=== PATIENT | female | born 1960 | race Hispanic/Latino ===

== ENCOUNTER 2016-11-03 11:20 | Emergency (ER) | payer MEDICAID ==
[2016-11-03 11:26] VITALS: BP 136/78; PULSE 84; RESP 20; TEMP 98; O2SAT 95
--- NOTE | 2016-11-03 12:44 | ED PDOC ---
Upper Extremity Pain/Injury Time Seen by Provider: 11/03/16 11:42 Chief Complaint (Nursing): Upper Extremity Problem/Injury Chief Complaint (Provider): Upper Extremity Problem/Injury History Per: Patient History/Exam Limitations: no limitations Onset/Duration Of Symptoms: Days Current Symptoms Are (Timing): Still Present Quality: "Pain" Severity: Mild Additional Complaint(s): Patient is a 56 year old female who presents to ED for evaluation of right shoulder pain for 1.5 weeks. States she accidentally over extended it while attempting to lift a crate at work. States pain radiates to elbow and wrist with no blunt trauma. Patient also reports atraumatic right knee swelling. Admits to an injury 10 years ago resulting in cartridge surgery and now the knee arnoldo with walking up steps. Past Medical History Reviewed: Historical Data, Nursing Documentation, Vital Signs Vital Signs: Last Vital Signs Temp 98 F 11/03/16 11:25 Pulse 84 11/03/16 11:25 Resp 20 11/03/16 11:25 BP 136/78 11/03/16 11:25 Pulse Ox 95 11/03/16 11:25 - Medical History PMH: No Chronic Diseases - Surgical History Other surgeries: knee surgery - Family History Family History: States: No Known Family Hx - Home Medications Home Medications: Ambulatory Orders Medication Instructions Recorded Meloxicam [Mobic] 7.5 mg PO DAILY PRN #30 tab 11/03/16 Tramadol HCl [Ultram] 50 mg PO BID PRN #30 tablet 11/03/16 - Allergies Allergies/Adverse Reactions: Allergies Allergy/AdvReac Type Severity Reaction Status Date / Time No Known Allergies Allergy Verified 11/03/16 12:21 Review of Systems ROS Statement: Except As Marked, All Systems Reviewed And Found Negative Constitutional: Negative for: Weakness Eyes: Negative for: Vision Change Cardiovascular: Negative for: Chest Pain, Palpitations Respiratory: Negative for: Shortness of Breath Musculoskeletal: Positive for: Arm Pain, Leg Pain. Negative for: Back Pain Neurological: Negative for: Weakness, Numbness Physical Exam - Reviewed Nursing Documentation Reviewed: Yes Vital Signs Reviewed: Yes - Physical Exam Appears: Positive for: Non-toxic, No Acute Distress Skin: Positive for: Normal Color, Warm Eye Exam: Positive for: Normal appearance Neck: Positive for: Normal, Painless ROM Extremity: Positive for: Normal ROM, Tenderness (right lateral shoulder mild tenderness (-) deformity (-) swelling. ), Other (Right knee (-) tenderness (-) erythema (-) warmth (-) deformity ) Neurologic/Psych: Positive for: Alert, Oriented - ECG O2 Sat by Pulse Oximetry: 95 - Progress ED Course And Treament: Knee x-ray: DJD; no fx Shoulder x-ray: calcific tendinitis; no fx or dislocation elbow x-ray: no fx Shoulder sling given. Medical Decision Making Medical Decision Making: Time: 1210 Initial impression: Shoulder sprain Initial plan: -- Knee Xray -- Tramadol -- Elbow and Shoulder Scribe Attestation: Documented by Juliet Torres acting as a scribe for Daniel Huynh PA-C. MD Scribe Attestation: All medical record entries made by the Scribe were at my direction and personally dictated by me. I have reviewed the chart and agree that the record accurately reflects my personal performance of the history, physical exam, medical decision making, and the department course for this patient. I have also personally directed, reviewed, and agree with the discharge instructions and disposition. Disposition - Clinical Impression Clinical Impression: Shoulder tendonitis, Knee pain - Patient ED Disposition Is Patient to be Admitted: No - Disposition Referrals: Ai Le MD [Staff Provider] - [facility] [Outside] Disposition: Routine/Home Disposition Time: 13:31 Condition: STABLE Prescriptions: Meloxicam [Mobic] 7.5 mg PO DAILY PRN #30 tab PRN Reason: Pain, Mild (1-3) Tramadol HCl [Ultram] 50 mg PO BID PRN #30 tablet PRN Reason: Other Instructions: Shoulder Pain (ED), Knee Pain (ED) Print Language: KOREAN
--- NOTE | 2016-11-03 13:37 | RAD ---
PROCEDURE: Radiographs of the right elbow. HISTORY: pain COMPARISON: No prior. FINDINGS: BONES: Bone alignment and mineralization are normal. There is no acute fracture or bone destruction. JOINTS: Normal. No osteoarthritis. SOFT TISSUES: Normal. JOINT EFFUSION: None. OTHER FINDINGS: None. IMPRESSION: Normal examination.
--- NOTE | 2016-11-03 13:37 | RAD ---
PROCEDURE: Radiographs of the Right Shoulder HISTORY: Pain COMPARISON: No prior. FINDINGS: BONES: Bone alignment and mineralization are normal. There is no acute fracture or bone destruction. JOINTS: Normal. Glenohumeral and acromioclavicular joints preserved. No osteoarthritis. SOFT TISSUES: Normal. OTHER FINDINGS: None. IMPRESSION: Normal examination.
--- NOTE | 2016-11-03 13:39 | RAD ---
PROCEDURE: Right Knee Radiographs. HISTORY: Pain COMPARISON: None. FINDINGS: BONES: Bone alignment place normal. There is no acute fracture or bone destruction. There is periarticular bone demineralization. JOINTS: There is moderate tricompartmental degenerative osteoarthrosis with reduced joint spaces, marginal osteophytes and tibial spiking, worse in the medial compartment. JOINT EFFUSION: There is a small suprapatellar joint effusion. OTHER FINDINGS: None. IMPRESSION: Moderate tricompartmental degenerative osteoarthrosis, worse in the medial compartment. Small suprapatellar joint effusion.
== END 2016-11-03 13:42 | disposition home or self-care (01) ==
LOC: H.ER 11:20
DX: M75.81 Other shoulder lesions, right shoulder (principal); M25.521 Pain in right elbow; M25.461 Effusion, right knee